=== PATIENT | male | born 1965 | race Caucasian/White ===

== ENCOUNTER 2018-01-22 18:52 | Emergency (ER) | payer OTHER ==
[~2018-01-22] VITALS: Ht 188 cm; Wt 102.2 kg
[~2018-01-22 18:52] MED LIST: BACTRIM DS1 TAB PO; DARVOCET N-100100 - OR; DILAUDID 2MG2 MG/TA1 PO; FLEXERIL OR; FLEXERIL PO; MORPHINE SUL15 MG PO; MOTRIN800 MG OR; MUPIROCIN2 % EX; NAPROSYN500 MG OR; NAPROSYN500 MG PO; NO HOME MEDS; TRIMOX500 MG PO
[2018-01-22 19:57] LABS: HEMATOCRIT 45.4 % (39.0-50.0); HEMOGLOBIN 16.3 g/dl (14.0-18.0); IMMATURE GRANULOCYTES 0.3 % (0.0-1.0); MEAN CELL VOLUME 84.9 fL CALC (80.0-100.0); MEAN CORPUSCULAR HGB 30.5 pG CALC (26.0-32.0); MEAN CORPUSCULAR HGB CONC 35.9 g/L CALC (32.0-36.0); NEUT# 5.88 thou/uL (1.82-7.42); RED BLOOD COUNT 5.35 mill/uL (4.70-6.10); RED CELL DISTRI WIDTH 12.1 % (11.5-15.5)
[2018-01-22 20:17] LABS: INFLUENZA A NONE DETECTED (NONE DETECT); INFLUENZA B NONE DETECTED (NONE DETECT)
[2018-01-22 20:23] LABS: ALBUMIN 3.5 g/dL (3.2-5.0); ALKALINE PHOSPHATASE 90 u/l (38-126); ANION GAP 18 (6-22 (CALC)); BILIRUBIN, TOTAL 0.3 mg/dL (0.0-1.4); BUN 9 mg/dL (9-20); BUN/CREATININE RATIO 9 (12-20 (CALC)); CARBON DIOXIDE 24 mmol/l (22-30); CHLORIDE 96 mmol/l (95-108); CREATININE 0.9 mg/dL (0.7-1.3); GFR > 60 ML/MIN (>=60 (CALC)); GFR FOR AFR.AMER. > 60 ML/MIN (>=60 (CALC)); LIPASE 68 u/l (23-300); POTASSIUM 4.1 mmol/l (3.5-5.1); SGOT/AST 24 u/l (17-59); SGPT/ALT 37 u/l (21-72); SODIUM 133 mmol/l (137-146); TOTAL PROTEIN 6.2 g/dL (6.3-8.2)
[2018-01-22 21:38] LABS: URINE BILIRUBIN - DIPSTICK NEGATIVE (NEGATIVE); URINE BLOOD DIPSTICK NEGATIVE (NEGATIVE); URINE COLOR YELLOW; URINE GLUCOSE - DIPSTICK NEGATIVE (NEGATIVE); URINE KETONE NEGATIVE (NEGATIVE); URINE LEUK ESTERASE NEGATIVE (NEGATIVE); URINE NITRITE - DIPSTICK NEGATIVE (Negative); URINE PROTEIN - DIPSTICK NEGATIVE (NEG-TRACE); URINE SPECIFIC GRAVITY <=1.005; URINE UROBILINOGEN - DIPSTICK 0.2 E.U./dL (0.2)
[2018-01-22 21:46] LABS: URINE CLARITY CLEAR
[2018-01-22] MEDS ORDERED: AUGMENTIN875TAB PO (22:08)
[2018-01-22 22:39] VITALS: BP 128/82
== END 2018-01-22 22:39 | disposition home or self-care (01) | DRG 153 ==
LOC: ED 18:52
PROVIDERS: Emergency Medicine
DX: J02.0 Streptococcal pharyngitis (principal); F17.210 Nicotine dependence, cigarettes, uncomplicated; R05 Cough; R50.9 Fever, unspecified; R09.89 Other specified symptoms and signs involving the circulatory and respiratory systems; R11.10 Vomiting, unspecified; R19.7 Diarrhea, unspecified; M79.1 Myalgia

== ENCOUNTER 2018-01-28 12:40 | Emergency (ER) | payer OTHER ==
[~2018-01-28] VITALS: Ht 188 cm; Wt 102.0 kg
[~2018-01-28 12:40] MED LIST changes: +AUGMENTIN875TAB PO
[2018-01-28 14:00] LABS: HEMATOCRIT 44.8 % (39.0-50.0); HEMOGLOBIN 16.2 g/dl (14.0-18.0); IMMATURE GRANULOCYTES 1.3 % (0.0-1.0); MEAN CELL VOLUME 83.3 fL CALC (80.0-100.0); MEAN CORPUSCULAR HGB 30.1 pG CALC (26.0-32.0); MEAN CORPUSCULAR HGB CONC 36.2 g/L CALC (32.0-36.0); RED BLOOD COUNT 5.38 mill/uL (4.70-6.10); RED CELL DISTRI WIDTH 11.9 % (11.5-15.5)
[2018-01-28] MEDS ORDERED: PEPCID20 MG PO (14:10)
[2018-01-28] MEDS ORDERED: VALIUM5 MG PO (14:10)
[2018-01-28 14:18] LABS: ALBUMIN 3.3 g/dL (3.2-5.0); ALKALINE PHOSPHATASE 81 u/l (38-126); ANION GAP 18 (6-22 (CALC)); BILIRUBIN, TOTAL 0.6 mg/dL (0.0-1.4); BUN 13 mg/dL (9-20); BUN/CREATININE RATIO 12 (12-20 (CALC)); CARBON DIOXIDE 22 mmol/l (22-30); CHLORIDE 103 mmol/l (95-108); GFR > 60 ML/MIN (>=60 (CALC)); GFR FOR AFR.AMER. > 60 ML/MIN (>=60 (CALC)); LIPASE 115 u/l (23-300); POTASSIUM 4.2 mmol/l (3.5-5.1); SGOT/AST 29 u/l (17-59); SGPT/ALT 58 u/l (21-72); SODIUM 139 mmol/l (137-146); TOTAL PROTEIN 6.4 g/dL (6.3-8.2)
[2018-01-28 15:33] LABS: URINE BLOOD DIPSTICK NEGATIVE (NEGATIVE); URINE COLOR YELLOW; URINE GLUCOSE - DIPSTICK NEGATIVE (NEGATIVE); URINE KETONE NEGATIVE (NEGATIVE); URINE LEUK ESTERASE NEGATIVE (NEGATIVE); URINE NITRITE - DIPSTICK NEGATIVE (Negative); URINE PH 6.5 (4.5-8.0); URINE PROTEIN - DIPSTICK TRACE mg/dL (NEG-TRACE)
[2018-01-28 16:00] LABS: URINE BILIRUBIN - DIPSTICK SMALL (NEGATIVE); URINE CLARITY CLEAR
[2018-01-28] MEDS ORDERED: ONDANSETRON4 MG PO (16:03)
[2018-01-28 16:11] VITALS: BP 130/96
== END 2018-01-28 16:19 | disposition home or self-care (01) | DRG 392 ==
LOC: ED 12:40
PROVIDERS: Family Medicine
DX: A08.4 Viral intestinal infection, unspecified (principal); F17.210 Nicotine dependence, cigarettes, uncomplicated; G89.29 Other chronic pain; M54.9 Dorsalgia, unspecified
CPT/HCPCS: Q9967

== ENCOUNTER 2019-09-05 14:57 | Inpatient (IN) | payer OTHER ==
[~2019-09-05] VITALS: Ht 188 cm; Wt 84.6 kg
[~2019-09-05 14:57] MED LIST changes: +ONDANSETRON4 MG PO; +PEPCID20 MG PO; +VALIUM5 MG PO
[2019-09-05 15:24] LABS: HEMATOCRIT 40.6 % (39.0-50.0); HEMOGLOBIN 14.3 g/dl (14.0-18.0); IMMATURE GRANULOCYTES 0.5 % (0.0-5.0); MEAN CELL VOLUME 85.3 fL CALC (80.0-100.0); MEAN CORPUSCULAR HGB CONC 35.2 g/L CALC (32.0-36.0); NEUT# 8.34 thou/uL (1.82-7.42); RED BLOOD COUNT 4.76 mill/uL (4.70-6.10); RED CELL DISTRI WIDTH 12.6 % (11.5-15.5)
[2019-09-05 15:42] LABS: ANION GAP 12 (6-22 (CALC)); BUN 10 mg/dL (9-20); BUN/CREATININE RATIO 12 (12-20 (CALC)); CARBON DIOXIDE 24 mmol/l (22-30); CHLORIDE 101 mmol/l (95-108); CREATININE 0.8 mg/dL (0.7-1.3); GFR > 60 ML/MIN (>=60 (CALC)); GFR FOR AFR.AMER. > 60 ML/MIN (>=60 (CALC)); POTASSIUM 3.9 mmol/l (3.5-5.1); SODIUM 133 mmol/l (137-146)
[2019-09-05 17:44] VITALS: BP 104/76
[2019-09-05 19:25] VITALS: BP 102/62
[2019-09-06 00:08] VITALS: BP 104/71
[2019-09-06 04:35] VITALS: BP 113/78
[2019-09-06 08:06] VITALS: BP 127/86
[2019-09-06 13:44] LABS: HEMATOCRIT 40.4 % (39.0-50.0); IMMATURE GRANULOCYTES 0.6 % (0.0-5.0); MEAN CELL VOLUME 88.6 fL CALC (80.0-100.0); MEAN CORPUSCULAR HGB 30.7 pG CALC (26.0-32.0); MEAN CORPUSCULAR HGB CONC 34.7 g/L CALC (32.0-36.0); RED BLOOD COUNT 4.56 mill/uL (4.70-6.10); RED CELL DISTRI WIDTH 12.8 % (11.5-15.5)
[2019-09-06 15:10] VITALS: BP 118/76
[2019-09-06 19:00] VITALS: BP 115/75
[2019-09-07 04:20] VITALS: BP 109/62
[2019-09-07 05:31] LABS: HEMATOCRIT 42.4 % (39.0-50.0); HEMOGLOBIN 14.5 g/dl (14.0-18.0); IMMATURE GRANULOCYTES 0.7 % (0.0-5.0); MEAN CELL VOLUME 88.5 fL CALC (80.0-100.0); MEAN CORPUSCULAR HGB 30.3 pG CALC (26.0-32.0); MEAN CORPUSCULAR HGB CONC 34.2 g/L CALC (32.0-36.0); NEUT# 11.78 thou/uL (1.82-7.42); RED BLOOD COUNT 4.79 mill/uL (4.70-6.10); RED CELL DISTRI WIDTH 12.9 % (11.5-15.5)
[2019-09-07 05:34] LABS: BUN 9 mg/dL (9-20); BUN/CREATININE RATIO 12 (12-20 (CALC)); CARBON DIOXIDE 22 mmol/l (22-30); CHLORIDE 105 mmol/l (95-108); CREATININE 0.8 mg/dL (0.7-1.3); GFR > 60 ML/MIN (>=60 (CALC)); GFR FOR AFR.AMER. > 60 ML/MIN (>=60 (CALC)); MAGNESIUM 1.7 mg/dL (1.6-2.3); SODIUM 136 mmol/l (137-146)
[2019-09-07 05:38] LABS: ANION GAP 14 (6-22 (CALC)); POTASSIUM 4.7 mmol/l (3.5-5.1)
[2019-09-07 08:05] VITALS: BP 128/72
[2019-09-07 15:04] VITALS: BP 116/66
[2019-09-07 19:05] VITALS: BP 133/83
[2019-09-08 03:39] VITALS: BP 118/68
[2019-09-08 07:44] VITALS: BP 113/69
[2019-09-08 10:40] VITALS: BP 138/83
[2019-09-08 15:09] VITALS: BP 113/68
[2019-09-08] MEDS ORDERED: ADVAIR DISK1 INH (18:09)
[2019-09-08] MEDS ORDERED: VENTOLIN HFA IN (18:09)
[2019-09-08] MEDS ORDERED: ZPAK PO (18:11)
== END 2019-09-08 18:40 | disposition home health service (06) | DRG 194 ==
LOC: ED 14:57 → ED-I 15:46 → ED 16:00 → MS2 16:01
PROVIDERS: Family Medicine; Nurse Practitioner Family; ADMIT Internal Medicine; ATTEND Internal Medicine
PROC: 3E02340 Introduction of Influenza Vaccine into Muscle, Percutaneous Approach (ICD-10-PCS; principal; 2019-09-07)
PROC: 3E0234Z Introduction of Serum, Toxoid and Vaccine into Muscle, Percutaneous Approach (ICD-10-PCS; 2019-09-07)
DX: J18.9 Pneumonia, unspecified organism (principal); E87.1 Hypo-osmolality and hyponatremia; M54.5 Low back pain; G89.29 Other chronic pain; F17.210 Nicotine dependence, cigarettes, uncomplicated; Z71.6 Tobacco abuse counseling; Z88.6 Allergy status to analgesic agent; Z88.5 Allergy status to narcotic agent
CPT/HCPCS: J1650; Q9967

== ENCOUNTER 2019-09-16 15:27 | Inpatient (IN) | payer OTHER ==
[~2019-09-16] VITALS: Ht 185.4 cm; Wt 89.8 kg
[~2019-09-16 15:27] MED LIST changes: +ADVAIR DISK1 INH; +VENTOLIN HFA IN; +ZPAK PO
[2019-09-16 16:30] LABS: HEMATOCRIT 40.8 % (39.0-50.0); HEMOGLOBIN 13.9 g/dl (14.0-18.0); IMMATURE GRANULOCYTES 0.3 % (0.0-5.0); MEAN CELL VOLUME 88.1 fL CALC (80.0-100.0); MEAN CORPUSCULAR HGB CONC 34.1 g/L CALC (32.0-36.0); NEUT# 1.96 thou/uL (1.82-7.42); RED BLOOD COUNT 4.63 mill/uL (4.70-6.10); RED CELL DISTRI WIDTH 12.7 % (11.5-15.5)
[2019-09-16 16:46] LABS: ALBUMIN 3.1 g/dL (3.2-5.0); ALKALINE PHOSPHATASE 199 u/l (38-126); AMYLASE 82 u/l (30-110); ANION GAP 13 (6-22 (CALC)); BILIRUBIN, TOTAL 0.4 mg/dL (0.0-1.4); BUN 22 mg/dL (9-20); BUN/CREATININE RATIO 23 (12-20 (CALC)); CARBON DIOXIDE 26 mmol/l (22-30); CHLORIDE 99 mmol/l (95-108); CREATININE 0.9 mg/dL (0.7-1.3); GFR > 60 ML/MIN (>=60 (CALC)); GFR FOR AFR.AMER. > 60 ML/MIN (>=60 (CALC)); LIPASE 294 u/l (23-300); POTASSIUM 4.6 mmol/l (3.5-5.1); SGOT/AST 407 u/l (17-59); SODIUM 133 mmol/l (137-146); TOTAL PROTEIN 6.2 g/dL (6.3-8.2)
[2019-09-16 17:02] LABS: URINE BILIRUBIN - DIPSTICK NEGATIVE (NEGATIVE); URINE BLOOD DIPSTICK NEGATIVE (NEGATIVE); URINE COLOR YELLOW; URINE GLUCOSE - DIPSTICK 250 mg/dL (NEGATIVE); URINE KETONE NEGATIVE (NEGATIVE); URINE LEUK ESTERASE NEGATIVE (NEGATIVE); URINE NITRITE - DIPSTICK NEGATIVE (Negative); URINE PH 5.5 (4.5-8.0); URINE PROTEIN - DIPSTICK NEGATIVE (NEG-TRACE); URINE SPECIFIC GRAVITY <=1.005
[2019-09-16 17:03] LABS: BARBITURATES NEGATIVE (NEGATIVE); COCAINE NEGATIVE (NEGATIVE); METHADONE NEGATIVE (NEGATIVE); OXCYCODONE POSITIVE (NEGATIVE); TETRAHYDROCANNABIONOL NEGATIVE (NEGATIVE); TRICYLIC ANTIDEPRESSANTS NEGATIVE (NEGATIVE)
[2019-09-16 17:39] LABS: ETHYL ALCOHOL 0 mg/dl (0-30)
[2019-09-16 20:30] VITALS: BP 144/92
[2019-09-17] VITALS (7 sets, daily range): BP systolic 98–134; BP diastolic 63–83
[2019-09-17 05:15] LABS: HEMATOCRIT 40.7 % (39.0-50.0); HEMOGLOBIN 13.5 g/dl (14.0-18.0); IMMATURE GRANULOCYTES 0.4 % (0.0-5.0); MEAN CELL VOLUME 90.4 fL CALC (80.0-100.0); MEAN CORPUSCULAR HGB CONC 33.2 g/L CALC (32.0-36.0); NEUT# 2.38 thou/uL (1.82-7.42); RED BLOOD COUNT 4.5 mill/uL (4.70-6.10); RED CELL DISTRI WIDTH 12.9 % (11.5-15.5)
[2019-09-17 05:49] LABS: ALBUMIN 2.9 g/dL (3.2-5.0); ALKALINE PHOSPHATASE 179 u/l (38-126); ANION GAP 12 (6-22 (CALC)); BILIRUBIN, TOTAL 0.4 mg/dL (0.0-1.4); BUN 15 mg/dL (9-20); BUN/CREATININE RATIO 18 (12-20 (CALC)); CARBON DIOXIDE 23 mmol/l (22-30); CHLORIDE 103 mmol/l (95-108); CREATININE 0.8 mg/dL (0.7-1.3); GFR > 60 ML/MIN (>=60 (CALC)); GFR FOR AFR.AMER. > 60 ML/MIN (>=60 (CALC)); POTASSIUM 4.4 mmol/l (3.5-5.1); SGOT/AST 424 u/l (17-59); SODIUM 133 mmol/l (137-146)
[2019-09-17 11:20] LABS: PROTHROMBIN TIME 10.7 SECONDS (9.0-12.5)
[2019-09-17 16:44] LABS: ALBUMIN 3.1 g/dL (3.2-5.0); BILIRUBIN, TOTAL 0.4 mg/dL (0.0-1.4); TOTAL PROTEIN 6.1 g/dL (6.3-8.2)
[2019-09-18 04:44] VITALS: BP 102/73
[2019-09-18 05:28] LABS: HEMATOCRIT 39.6 % (39.0-50.0); HEMOGLOBIN 13.4 g/dl (14.0-18.0); IMMATURE GRANULOCYTES 0.5 % (0.0-5.0); MEAN CELL VOLUME 89.4 fL CALC (80.0-100.0); MEAN CORPUSCULAR HGB 30.2 pG CALC (26.0-32.0); MEAN CORPUSCULAR HGB CONC 33.8 g/L CALC (32.0-36.0); NEUT# 2.43 thou/uL (1.82-7.42); RED BLOOD COUNT 4.43 mill/uL (4.70-6.10); RED CELL DISTRI WIDTH 12.8 % (11.5-15.5)
[2019-09-18 05:49] LABS: ALKALINE PHOSPHATASE 185 u/l (38-126); ANION GAP 10 (6-22 (CALC)); BUN 11 mg/dL (9-20); BUN/CREATININE RATIO 13 (12-20 (CALC)); CARBON DIOXIDE 22 mmol/l (22-30); CHLORIDE 107 mmol/l (95-108); CREATININE 0.9 mg/dL (0.7-1.3); GFR > 60 ML/MIN (>=60 (CALC)); GFR FOR AFR.AMER. > 60 ML/MIN (>=60 (CALC)); MAGNESIUM 1.8 mg/dL (1.6-2.3); POTASSIUM 4.3 mmol/l (3.5-5.1); SGOT/AST 449 u/l (17-59); SODIUM 135 mmol/l (137-146)
[2019-09-18 07:41] VITALS: BP 91/62
[2019-09-18 10:47] VITALS: BP 103/68
[2019-09-18] MEDS ORDERED: PANTOPRAZOLE SO40 M1 PO (12:18)
[2019-09-18] MEDS ORDERED: OXYCODONE5 M1 PO (12:18)
== END 2019-09-18 14:11 | disposition home or self-care (01) | DRG 443 ==
LOC: ED 15:27 → ED-I 19:06 → ED 19:48 → MS2 19:49
PROVIDERS: Emergency Medicine; Internal Medicine Infectious Disease; Nurse Practitioner Family; ADMIT Internal Medicine; ATTEND Internal Medicine
DX: B16.9 Acute hepatitis B without delta-agent and without hepatic coma (principal); B17.10 Acute hepatitis C without hepatic coma; K76.0 Fatty (change of) liver, not elsewhere classified; J44.9 Chronic obstructive pulmonary disease, unspecified; F17.210 Nicotine dependence, cigarettes, uncomplicated; K44.9 Diaphragmatic hernia without obstruction or gangrene; R73.9 Hyperglycemia, unspecified; F11.10 Opioid abuse, uncomplicated; F15.10 Other stimulant abuse, uncomplicated; M51.26 Other intervertebral disc displacement, lumbar region; Z87.01 Personal history of pneumonia (recurrent); V89.2XXS Person injured in unspecified motor-vehicle accident, traffic, sequela
CPT/HCPCS: Q9967

== ENCOUNTER 2019-11-30 | Emergency (ER) | payer OTHER ==
[~2019-11-30] MED LIST changes: +OXYCODONE5 M1 PO; +PANTOPRAZOLE SO40 M1 PO
[2019-11-30 22:04] LABS: HEMATOCRIT 36.9 % (39.0-50.0); HEMOGLOBIN 12.9 g/dl (14.0-18.0); IMMATURE GRANULOCYTES 0.3 % (0.0-5.0); MEAN CELL VOLUME 89.1 fL CALC (80.0-100.0); MEAN CORPUSCULAR HGB 31.2 pG CALC (26.0-32.0); NEUT# 3.92 thou/uL (1.82-7.42); RED BLOOD COUNT 4.14 mill/uL (4.70-6.10); RED CELL DISTRI WIDTH 13.5 % (11.5-15.5)
[2019-11-30 22:21] LABS: ALBUMIN 3.3 g/dL (3.2-5.0); ANION GAP 11 (6-22 (CALC)); BUN 13 mg/dL (9-20); BUN/CREATININE RATIO 13 (12-20 (CALC)); CARBON DIOXIDE 23 mmol/l (22-30); CHLORIDE 102 mmol/l (95-108); ETHYL ALCOHOL 0 mg/dl (0-30); GFR > 60 ML/MIN (>=60 (CALC)); GFR FOR AFR.AMER. > 60 ML/MIN (>=60 (CALC)); MAGNESIUM 1.7 mg/dL (1.6-2.3); SODIUM 131 mmol/l (137-146); TOTAL PROTEIN 6.3 g/dL (6.3-8.2)
[2019-11-30 22:26] LABS: ALKALINE PHOSPHATASE 71 u/l (38-126); BILIRUBIN, TOTAL 0.7 mg/dL (0.0-1.4); SGOT/AST 33 u/l (17-59)
[2019-12-01 00:20] LABS: URINE BILIRUBIN - DIPSTICK NEGATIVE (NEGATIVE); URINE BLOOD DIPSTICK NEGATIVE (NEGATIVE); URINE COLOR YELLOW; URINE GLUCOSE - DIPSTICK NEGATIVE (NEGATIVE); URINE KETONE NEGATIVE (NEGATIVE); URINE LEUK ESTERASE NEGATIVE (NEGATIVE); URINE NITRITE - DIPSTICK NEGATIVE (Negative); URINE PROTEIN - DIPSTICK NEGATIVE (NEG-TRACE)
[2019-12-01 00:21] LABS: BARBITURATES NEGATIVE (NEGATIVE); COCAINE POSITIVE (NEGATIVE); METHADONE NEGATIVE (NEGATIVE); TETRAHYDROCANNABIONOL NEGATIVE (NEGATIVE); TRICYLIC ANTIDEPRESSANTS NEGATIVE (NEGATIVE)
[2019-12-01 00:22] LABS: OXCYCODONE POSITIVE (NEGATIVE)
== END 2019-12-01 04:25 | disposition home or self-care (01) ==
PROVIDERS: Family Medicine
DX: F11.10 Opioid abuse, uncomplicated (principal); F17.200 Nicotine dependence, unspecified, uncomplicated

== ENCOUNTER 2020-01-21 | Inpatient (IN) | payer OTHER ==
[2020-01-21 14:11] LABS: HEMATOCRIT 39.6 % (39.0-50.0); HEMOGLOBIN 14.4 g/dl (14.0-18.0); IMMATURE GRANULOCYTES 0.4 % (0.0-5.0); MEAN CELL VOLUME 85.5 fL CALC (80.0-100.0); MEAN CORPUSCULAR HGB 31.1 pG CALC (26.0-32.0); MEAN CORPUSCULAR HGB CONC 36.4 g/dL CAL (32.0-36.0); NEUT# 11.04 thou/uL (1.82-7.42); RED BLOOD COUNT 4.63 mill/uL (4.70-6.10)
[2020-01-21 14:30] LABS: ALBUMIN 3.3 g/dL (3.2-5.0); ALKALINE PHOSPHATASE 78 u/l (38-126); ANION GAP 13 (6-22 (CALC)); BUN 19 mg/dL (9-20); BUN/CREATININE RATIO 18 (12-20 (CALC)); CARBON DIOXIDE 21 mmol/l (22-30); CHLORIDE 97 mmol/l (95-108); CREATININE 1.1 mg/dL (0.7-1.3); GFR > 60 ML/MIN (>=60 (CALC)); GFR FOR AFR.AMER. > 60 ML/MIN (>=60 (CALC)); LIPASE 107 u/l (23-300); POTASSIUM 4.1 mmol/l (3.5-5.1); SGOT/AST 27 u/l (17-59); SODIUM 127 mmol/l (137-146); TOTAL PROTEIN 6.3 g/dL (6.3-8.2)
[2020-01-21 14:42] LABS: C-REACTIVE PROTEIN 20.1 mg/dL (0-0.9)
[2020-01-21 17:08] VITALS: BP 98/67
[2020-01-21 19:12] VITALS: BP 82/52
[2020-01-21 21:50] VITALS: BP 92/55
[2020-01-22 04:19] VITALS: BP 102/70; BP 83/50
[2020-01-22 07:47] LABS: HEMATOCRIT 34.4 % (39.0-50.0); MEAN CELL VOLUME 86.6 fL CALC (80.0-100.0); MEAN CORPUSCULAR HGB CONC 35.8 g/dL CAL (32.0-36.0); RED BLOOD COUNT 3.97 mill/uL (4.70-6.10); RED CELL DISTRI WIDTH 12.1 % (11.5-15.5)
[2020-01-22 08:04] LABS: HEMOGLOBIN 12.3 g/dl (14.0-18.0)
[2020-01-22 08:08] VITALS: BP 96/88
[2020-01-22 08:17] LABS: ANION GAP 9 (6-22 (CALC)); BUN 12 mg/dL (9-20); BUN/CREATININE RATIO 14 (12-20 (CALC)); CARBON DIOXIDE 21 mmol/l (22-30); CHLORIDE 104 mmol/l (95-108); CREATININE 0.8 mg/dL (0.7-1.3); GFR > 60 ML/MIN (>=60 (CALC)); GFR FOR AFR.AMER. > 60 ML/MIN (>=60 (CALC)); MAGNESIUM 1.7 mg/dL (1.6-2.3); POTASSIUM 3.4 mmol/l (3.5-5.1); SODIUM 130 mmol/l (137-146)
[2020-01-22 15:00] VITALS: BP 90/51
[2020-01-22 17:45] VITALS: BP 106/86
[2020-01-22 18:25] VITALS: BP 108/70
[2020-01-23 04:50] VITALS: BP 92/66
[2020-01-23 08:45] VITALS: BP 99/60
== END 2020-01-23 14:56 | disposition left against medical advice (07) | DRG 872 ==
PROVIDERS: ADMIT Internal Medicine
DX: A41.9 Sepsis, unspecified organism (principal); L03.115 Cellulitis of right lower limb; E87.1 Hypo-osmolality and hyponatremia; L97.929 Non-pressure chronic ulcer of unspecified part of left lower leg with unspecified severity; L97.919 Non-pressure chronic ulcer of unspecified part of right lower leg with unspecified severity; L03.116 Cellulitis of left lower limb; F17.200 Nicotine dependence, unspecified, uncomplicated; G89.4 Chronic pain syndrome; B19.20 Unspecified viral hepatitis C without hepatic coma; B95.62 Methicillin resistant Staphylococcus aureus infection as the cause of diseases classified elsewhere; Z87.01 Personal history of pneumonia (recurrent)
CPT/HCPCS: J1650; J3370

== ENCOUNTER 2020-02-23 | Emergency (ER) | payer OTHER ==
[2020-02-23 22:47] LABS: IMMATURE GRANULOCYTES 0.5 % (0.0-5.0); MEAN CORPUSCULAR HGB 30.4 pG CALC (26.0-32.0); MEAN CORPUSCULAR HGB CONC 35.4 g/dL CAL (32.0-36.0); NEUT# 5.92 thou/uL (1.82-7.42); RED BLOOD COUNT 4.8 mill/uL (4.70-6.10); RED CELL DISTRI WIDTH 12.3 % (11.5-15.5)
[2020-02-23 22:55] LABS: HEMATOCRIT 41.3 % (39.0-50.0); HEMOGLOBIN 14.6 g/dl (14.0-18.0)
[2020-02-23 23:04] LABS: ALBUMIN 3.7 g/dL (3.2-5.0); ALKALINE PHOSPHATASE 90 u/l (38-126); AMYLASE 77 u/l (30-110); BILIRUBIN, TOTAL 0.6 mg/dL (0.0-1.4); BUN 13 mg/dL (9-20); BUN/CREATININE RATIO 13 (12-20 (CALC)); CHLORIDE 103 mmol/l (95-108); GFR > 60 ML/MIN (>=60 (CALC)); GFR FOR AFR.AMER. > 60 ML/MIN (>=60 (CALC)); LIPASE 97 u/l (23-300); SODIUM 135 mmol/l (137-146); TOTAL PROTEIN 6.8 g/dL (6.3-8.2)
[2020-02-23 23:07] LABS: ANION GAP 9 (6-22 (CALC)); CARBON DIOXIDE 27 mmol/l (22-30); POTASSIUM 4.4 mmol/l (3.5-5.1); SGOT/AST 90 u/l (17-59)
[2020-02-23 23:34] LABS: TSH, 3RD GENERATION 1.88 uIU/mL (0.47 - 4.68)
[2020-02-24 00:16] LABS: URINE BILIRUBIN - DIPSTICK NEGATIVE (NEGATIVE); URINE BLOOD DIPSTICK NEGATIVE (NEGATIVE); URINE COLOR YELLOW; URINE GLUCOSE - DIPSTICK NEGATIVE (NEGATIVE); URINE KETONE TRACE mg/dL (NEGATIVE); URINE LEUK ESTERASE NEGATIVE (NEGATIVE); URINE NITRITE - DIPSTICK NEGATIVE (Negative); URINE PH 7.5 (4.5-8.0); URINE PROTEIN - DIPSTICK NEGATIVE (NEG-TRACE); URINE UROBILINOGEN - DIPSTICK 0.2 E.U./dL (0.2)
[2020-02-24 00:17] LABS: COCAINE POSITIVE (NEGATIVE); METHADONE NEGATIVE (NEGATIVE); TETRAHYDROCANNABIONOL NEGATIVE (NEGATIVE)
[2020-02-24 00:18] LABS: BARBITURATES NEGATIVE (NEGATIVE); OXCYCODONE NEGATIVE (NEGATIVE); TRICYLIC ANTIDEPRESSANTS NEGATIVE (NEGATIVE)
[2020-02-24] MEDS ORDERED: PHENERGAN25 MG RE (00:29)
== END 2020-02-24 00:40 | disposition home or self-care (01) ==
PROVIDERS: Family Medicine
DX: R11.10 Vomiting, unspecified (principal); F19.10 Other psychoactive substance abuse, uncomplicated; F17.210 Nicotine dependence, cigarettes, uncomplicated

== ENCOUNTER 2020-04-13 15:14 | Emergency (ER) | payer OTHER ==
[~2020-04-13] VITALS: Ht 188 cm; Wt 90.0 kg
[~2020-04-13 15:14] MED LIST changes: +PHENERGAN25 MG RE
[2020-04-13] MEDS ORDERED: ERYTHROMYCIN O3.5 GM OS (16:04)
[2020-04-13 16:13] VITALS: BP 115/76
== END 2020-04-13 16:13 | disposition home or self-care (01) ==
LOC: ED 15:14
DX: S05.02XA Injury of conjunctiva and corneal abrasion without foreign body, left eye, initial encounter (principal); F17.210 Nicotine dependence, cigarettes, uncomplicated; W22.8XXA Striking against or struck by other objects, initial encounter; Y93.H9 Activity, other involving exterior property and land maintenance, building and construction; Y92.007 Garden or yard of unspecified non-institutional (private) residence as the place of occurrence of the external cause

== ENCOUNTER 2020-04-21 03:13 | Emergency (ER) | payer OTHER ==
[~2020-04-21] VITALS: Ht 188 cm; Wt 90.9 kg
[~2020-04-21 03:13] MED LIST changes: +ERYTHROMYCIN O3.5 GM OS
[2020-04-21 04:17] LABS: URINE BILIRUBIN - DIPSTICK NEGATIVE (NEGATIVE); URINE BLOOD DIPSTICK NEGATIVE (NEGATIVE); URINE COLOR YELLOW; URINE GLUCOSE - DIPSTICK NEGATIVE (NEGATIVE); URINE KETONE NEGATIVE (NEGATIVE); URINE LEUK ESTERASE NEGATIVE (NEGATIVE); URINE NITRITE - DIPSTICK NEGATIVE (Negative); URINE PH 5.5 (4.5-8.0); URINE PROTEIN - DIPSTICK NEGATIVE (NEG-TRACE); URINE UROBILINOGEN - DIPSTICK 0.2 E.U./dL (0.2)
[2020-04-21 04:17] LABS: HEMATOCRIT 40.1 % (39.0-50.0); IMMATURE GRANULOCYTES 0.2 % (0.0-5.0); MEAN CELL VOLUME 85.7 fL CALC (80.0-100.0); MEAN CORPUSCULAR HGB 29.9 pG CALC (26.0-32.0); MEAN CORPUSCULAR HGB CONC 34.9 g/dL CAL (32.0-36.0); NEUT# 1.68 thou/uL (1.82-7.42); RED BLOOD COUNT 4.68 mill/uL (4.70-6.10)
[2020-04-21 04:21] LABS: D-DIMER 0.43 mg/L (0.19-0.60); PROTHROMBIN TIME 10.2 SECONDS (9.0-12.5)
[2020-04-21 04:29] LABS: ALBUMIN 3.7 g/dL (3.2-5.0); ALKALINE PHOSPHATASE 100 u/l (38-126); ANION GAP 9 (6-22 (CALC)); BUN 28 mg/dL (9-20); BUN/CREATININE RATIO 27 (12-20 (CALC)); CARBON DIOXIDE 26 mmol/l (22-30); CHLORIDE 104 mmol/l (95-108); GFR > 60 ML/MIN (>=60 (CALC)); GFR FOR AFR.AMER. > 60 ML/MIN (>=60 (CALC)); POTASSIUM 4.1 mmol/l (3.5-5.1); SGOT/AST 86 u/l (17-59); SODIUM 135 mmol/l (137-146); TOTAL PROTEIN 6.8 g/dL (6.3-8.2)
[2020-04-21 04:32] LABS: BILIRUBIN, TOTAL 0.3 mg/dL (0.0-1.4)
[2020-04-21 04:40] VITALS: BP 97/70
[2020-04-21 04:41] LABS: MYOGLOBIN 57 ng/mL (0 - 121)
== END 2020-04-21 05:04 | disposition home or self-care (01) ==
LOC: ED 03:13
PROVIDERS: Family Medicine
DX: R06.02 Shortness of breath (principal); F19.10 Other psychoactive substance abuse, uncomplicated; F17.210 Nicotine dependence, cigarettes, uncomplicated

== ENCOUNTER 2020-08-04 05:10 | Observation (INO) | payer OTHER ==
[~2020-08-04] VITALS: Ht 188 cm; Wt 90.0 kg
[2020-08-04 03:30] VITALS: BP 91/48
--- NOTE | 2020-08-04 05:13 | NUR ---
AMBULATED TO ROOM 13 USING CANE.
--- NOTE | 2020-08-04 06:20 | NUR ---
A/O M WITH VAGUE C/O NOT FEELING WELL.DENIES N/V/OR D.W/P/D SKIN SR NO ST T CHANGES NO ECTOPY
[2020-08-04 06:21] LABS: HEMATOCRIT 41.1 % (39.0-50.0); HEMOGLOBIN 14.1 g/dl (14.0-18.0); IMMATURE GRANULOCYTES 0.2 % (0.0-5.0); MEAN CELL VOLUME 86.9 fL CALC (80.0-100.0); MEAN CORPUSCULAR HGB 29.8 pG CALC (26.0-32.0); MEAN CORPUSCULAR HGB CONC 34.3 g/dL CAL (32.0-36.0); NEUT# 2.72 thou/uL (1.82-7.42); RED BLOOD COUNT 4.73 mill/uL (4.70-6.10); RED CELL DISTRI WIDTH 12.3 % (11.5-15.5)
[2020-08-04 06:24] LABS: URINE BILIRUBIN - DIPSTICK NEGATIVE (NEGATIVE); URINE BLOOD DIPSTICK NEGATIVE (NEGATIVE); URINE COLOR YELLOW; URINE GLUCOSE - DIPSTICK NEGATIVE (NEGATIVE); URINE KETONE NEGATIVE (NEGATIVE); URINE LEUK ESTERASE NEGATIVE (NEGATIVE); URINE NITRITE - DIPSTICK NEGATIVE (Negative); URINE PH 5.5 (4.5-8.0); URINE PROTEIN - DIPSTICK NEGATIVE (NEG-TRACE); URINE SPECIFIC GRAVITY 1.025; URINE UROBILINOGEN - DIPSTICK 0.2 E.U./dL (0.2)
[2020-08-04 06:35] LABS: ALBUMIN 3.7 g/dL (3.2-5.0); ALKALINE PHOSPHATASE 91 u/l (38-126); ANION GAP 12 (6-22 (CALC)); BILIRUBIN, TOTAL 0.2 mg/dL (0.0-1.4); BUN 12 mg/dL (9-20); BUN/CREATININE RATIO 15 (12-20 (CALC)); CARBON DIOXIDE 23 mmol/l (22-30); CHLORIDE 105 mmol/l (95-108); CREATININE 0.8 mg/dL (0.7-1.3); GFR > 60 ML/MIN (>=60 (CALC)); GFR FOR AFR.AMER. > 60 ML/MIN (>=60 (CALC)); POTASSIUM 4.2 mmol/l (3.5-5.1); SGOT/AST 25 u/l (17-59); SODIUM 137 mmol/l (137-146); TOTAL PROTEIN 6.3 g/dL (6.3-8.2)
[2020-08-04 06:39] LABS: PROTHROMBIN TIME 9.7 SECONDS (9.0-12.5)
[2020-08-04 06:47] LABS: MYOGLOBIN 41 ng/mL (0 - 121)
--- NOTE | 2020-08-04 06:58 | NUR ---
PT REPORT TO ANAND [facility]
--- NOTE | 2020-08-04 07:28 | NUR ---
PT REQUESTING COMETHING FOR BACK PAINA ND SOMETHING TO HELP HIM SLEEP. NOTIFIED.
--- NOTE | 2020-08-04 07:40 | NUR ---
PT MEDICATED WITH ASA AND NITRO ORDERED, CALL [facility] WITHIN REACH.
--- NOTE | 2020-08-04 08:01 | NUR ---
PT AWARE OF PLANNED ADMISSION. CALL [facility] WITHIN REACH
--- NOTE | 2020-08-04 08:31 | NUR ---
REPORT CALLED TO [facility]IE [facility] ON MED SURG.
--- NOTE | 2020-08-04 08:31 | NUR ---
REPORT REC FROM [facility]IS [facility]
--- NOTE | 2020-08-04 08:40 | NUR ---
PT TRASNPORTED TO MED SURG VIA WC ON TELE TO ROOM 279, NURSE AND FAMILY [facility] AT BEDSIDE ON ARRIVAL. AWARE OF PT REQUEST FOR PAIN MEDICATION
--- NOTE | 2020-08-04 08:40 | NUR ---
PT ARRIVED TO ID VIA ACCOMPANIED BY LUIS [facility]. A&O X3. NO DISTRESS NOTED. PT STABALIZED IN ROOM. ORIENTED PT TO ROOM. CALL LIGHT IN REACH. CONTINUE TO MONITOR.
--- NOTE | 2020-08-04 10:15 | NUR ---
PT SITTING IN BED. A&O X3. NO DISTRESS NOTED. PT C/O CHRONIC BACK PAIN 08/09. 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 #20 LAC, PATENT WITH IV FLUIDS INTIATED AT 100 ML/HR. NO OTHER NEEDS AT THIS TIME. PT STATES HE OCCASSIONALLY GETS SOB WITH EXCERTION, USES A CANE TO ASSIST WITH AMBULATION. [facility] OFFERED BUT REFUSED. ASSESSMENT COMPLETED. DISCUSSED POC. CALL LIGHT IN REACH. CONTINUE TO MONITOR.
[2020-08-04 10:30] VITALS: BP 95/54
--- NOTE | 2020-08-04 12:43 | NUR ---
PT LAYING IN BED. NO DISTRESS NOTED. PAIN MEDICATION ADMINISTERED. TO BE REASSESSED. CALL LIGHT IN REACH. CONTINUE TO MONITOR.
--- NOTE | 2020-08-04 17:15 | NUR ---
PT SLEEPING IN BED. RESP EVEN AND UNLABORED. CONTINUE TO MONITOR.
--- NOTE | 2020-08-04 17:46 | NUR ---
PT ARRIVED FROM CT SCAN. IV FLUIDS RESTARTED.
[2020-08-04 19:00] VITALS: BP 94/53
--- NOTE | 2020-08-04 20:40 | NUR ---
PT MEDICATED ORDERS PROVIDE AND ASSESSMENT COMPLETED AT THIS TIME. NO S/O DISTRESS NOTED. PT PROVIDED WITH GINGERALE AND SNACK PER REQUEST. DENIES ANY OTHER NEEDS AT THIS TIME. CALL LIGHT W/IN REACH AND PT ENCOURAGED TO CALL NEEDS ARISE.
[2020-08-05] VITALS: BP 92/57
[2020-08-05 01:24] VITALS: BP 98/64
--- NOTE | 2020-08-05 01:28 | NUR ---
PT MEDICATED FOR PAIN AT THIS TIME ORDERS PROVIDE. V/S ASSESSED AT THIS TIME PRIOR TO ADMINISTRATION. SODA PROVIDED PER REQUEST, DENIES ANY OTHER NEEDS.
[2020-08-05 04:00] VITALS: BP 119/77
[2020-08-05 05:04] LABS: HEMATOCRIT 37.3 % (39.0-50.0); HEMOGLOBIN 12.9 g/dl (14.0-18.0); IMMATURE GRANULOCYTES 0.2 % (0.0-5.0); MEAN CELL VOLUME 86.5 fL CALC (80.0-100.0); MEAN CORPUSCULAR HGB 29.9 pG CALC (26.0-32.0); MEAN CORPUSCULAR HGB CONC 34.6 g/dL CAL (32.0-36.0); NEUT# 2.65 thou/uL (1.82-7.42); RED BLOOD COUNT 4.31 mill/uL (4.70-6.10); RED CELL DISTRI WIDTH 12.3 % (11.5-15.5)
[2020-08-05 05:24] LABS: ALKALINE PHOSPHATASE 71 u/l (38-126); ANION GAP 8 (6-22 (CALC)); BUN 13 mg/dL (9-20); BUN/CREATININE RATIO 15 (12-20 (CALC)); CALCULATED LDLCHOLESTEROL 83 mg/dL (62-129 (CALC)); CARBON DIOXIDE 25 mmol/l (22-30); CHLORIDE 109 mmol/l (95-108); CHOLESTEROL HDL RATIO 4.5 (<4.4 (CALC)); CREATININE 0.9 mg/dL (0.7-1.3); GFR > 60 ML/MIN (>=60 (CALC)); GFR FOR AFR.AMER. > 60 ML/MIN (>=60 (CALC)); HDL CHOLESTEROL 29 mg/dL (>=40); MAGNESIUM 1.9 mg/dL (1.6-2.3); POTASSIUM 4.6 mmol/l (3.5-5.1); SGOT/AST 23 u/l (17-59); SODIUM 136 mmol/l (137-146); TOTAL CHOLESTEROL 131 mg/dl (0-199); TOTAL PROTEIN 5.4 g/dL (6.3-8.2); TOTAL TRIGLYCERIDES 99 mg/dl (30-149); VLDL CHOLESTROL 20 mg/dl (8-62 (CALC))
[2020-08-05 05:26] LABS: BILIRUBIN, TOTAL 0.1 mg/dL (0.0-1.4)
[2020-08-05 07:01] VITALS: BP 147/92
--- NOTE | 2020-08-05 07:01 | NUR ---
PT SITTING ON THE SIDE OF THE BED. A&O X3. NO DISTRESS NOTED. PT REPORTS TO BE FEELING BETTER THIS MORNING BUT IS C/O OF GENERALIZED PAIN. PAIN MEDICATION TO BE GIVEN. NITRO PACE REMOVED. ASSESSMENT COMPLETED. DISCUSSED POC. CALL LIGHT IN REACH. CONTINUE TO MONITOR.
--- NOTE | 2020-08-05 08:55 | NUR ---
DR. MARION AND LEONEL VAZQUEZ AT BEDSIDE DISCUSSING POC
[2020-08-05] MEDS ORDERED: ULTRAM50 M1 PO (10:35)
--- NOTE | 2020-08-05 11:03 | NUR ---
Discharge instructions given. Patient verbalizes understanding of same. Pt encouraged to return if symptoms worsen. Prescription given to pt. Discharged in stable condition via wheelchair to home accompanied by staff. All belongings sent with pt.
== END 2020-08-05 11:03 | disposition home or self-care (01) ==
LOC: ED 05:10 → ED-I 05:50 → ED 05:50 → ED-I 07:37 → ED 07:55 → MS2 07:56
PROVIDERS: Emergency Medicine; Nurse Practitioner; ADMIT Internal Medicine; ATTEND Internal Medicine
DX: R07.9 Chest pain, unspecified (principal); R06.00 Dyspnea, unspecified; F15.10 Other stimulant abuse, uncomplicated; F11.10 Opioid abuse, uncomplicated; M51.26 Other intervertebral disc displacement, lumbar region; B19.20 Unspecified viral hepatitis C without hepatic coma; F17.210 Nicotine dependence, cigarettes, uncomplicated; Z23 Encounter for immunization; Z20.828 Contact with and (suspected) exposure to other viral communicable diseases
CPT/HCPCS: G0378; J1650; Q9967

== ENCOUNTER 2020-08-08 04:57 | Emergency (ER) | payer OTHER ==
[~2020-08-08] VITALS: Ht 188 cm; Wt 86.4 kg
[~2020-08-08 04:57] MED LIST changes: +ULTRAM50 M1 PO
[2020-08-08 05:48] LABS: IMMATURE GRANULOCYTES 0.3 % (0.0-5.0); MEAN CELL VOLUME 85.4 fL CALC (80.0-100.0); MEAN CORPUSCULAR HGB 30.4 pG CALC (26.0-32.0); MEAN CORPUSCULAR HGB CONC 35.6 g/dL CAL (32.0-36.0); NEUT# 6.92 thou/uL (1.82-7.42); RED BLOOD COUNT 5.26 mill/uL (4.70-6.10); RED CELL DISTRI WIDTH 12.4 % (11.5-15.5)
[2020-08-08 05:51] LABS: HEMATOCRIT 44.9 % (39.0-50.0)
[2020-08-08 06:03] LABS: ALKALINE PHOSPHATASE 78 u/l (38-126); AMYLASE 148 u/l (30-110); ANION GAP 17 (6-22 (CALC)); BUN 19 mg/dL (9-20); BUN/CREATININE RATIO 18 (12-20 (CALC)); CARBON DIOXIDE 20 mmol/l (22-30); CHLORIDE 102 mmol/l (95-108); CPK 41 u/l (52-200); CREATININE 1.1 mg/dL (0.7-1.3); GFR > 60 ML/MIN (>=60 (CALC)); GFR FOR AFR.AMER. > 60 ML/MIN (>=60 (CALC)); LIPASE 185 u/l (23-300); MAGNESIUM 1.7 mg/dL (1.6-2.3); POTASSIUM 3.9 mmol/l (3.5-5.1); SGOT/AST 30 u/l (17-59); SODIUM 135 mmol/l (137-146)
[2020-08-08 06:08] LABS: URINE BILIRUBIN - DIPSTICK NEGATIVE (NEGATIVE); URINE BLOOD DIPSTICK NEGATIVE (NEGATIVE); URINE COLOR YELLOW; URINE GLUCOSE - DIPSTICK NEGATIVE (NEGATIVE); URINE KETONE NEGATIVE (NEGATIVE); URINE LEUK ESTERASE NEGATIVE (NEGATIVE); URINE NITRITE - DIPSTICK NEGATIVE (Negative); URINE PROTEIN - DIPSTICK TRACE mg/dL (NEG-TRACE); URINE SPECIFIC GRAVITY >=1.030; URINE UROBILINOGEN - DIPSTICK 0.2 E.U./dL (0.2)
[2020-08-08 06:08] LABS: D-DIMER 0.43 mg/L (0.19-0.60)
[2020-08-08 06:14] LABS: MYOGLOBIN 36 ng/mL (0 - 121)
[2020-08-08 06:18] LABS: ACT PARTIAL THROMBO TIME 20.2 SECONDS (20.0-32.5)
[2020-08-08 06:20] LABS: BILIRUBIN, TOTAL 0.3 mg/dL (0.0-1.4); TOTAL PROTEIN 7.1 g/dL (6.3-8.2)
[2020-08-08] MEDS ORDERED: CATAPRES0.2 MG PO (06:50)
[2020-08-08 06:55] VITALS: BP 112/72
== END 2020-08-08 06:55 | disposition home or self-care (01) ==
LOC: ED 04:57
PROVIDERS: Family Medicine
DX: R07.9 Chest pain, unspecified (principal); F14.23 Cocaine dependence with withdrawal; G89.29 Other chronic pain; M54.5 Low back pain; M25.559 Pain in unspecified hip; B19.20 Unspecified viral hepatitis C without hepatic coma; F17.210 Nicotine dependence, cigarettes, uncomplicated

== ENCOUNTER 2020-12-22 08:23 | Emergency (ER) | payer OTHER ==
[~2020-12-22] VITALS: Ht 188 cm; Wt 90.0 kg
[~2020-12-22 08:23] MED LIST changes: +CATAPRES0.2 MG PO
[2020-12-22] MEDS ORDERED: AMOX/K CLAV875 M1 PO (09:45)
[2020-12-22] MEDS ORDERED: SUBOXONE1 MI1 SL (10:05)
[2020-12-22] MEDS ORDERED: CLONIDINE0.1 MG PO (10:06)
[2020-12-22] MEDS ORDERED: VISTARIL 50MG C50 M1 PO (10:06)
[2020-12-22] MEDS ORDERED: IBUPROFEN600 MG PO (10:07)
[2020-12-22] MEDS ORDERED: FLEXERIL5 MG PO (10:07)
[2020-12-22 10:11] VITALS: BP 121/82
[2020-12-23] MEDS ORDERED: PREDNISONE50 MG PO (16:55)
== END 2020-12-22 10:11 | disposition home or self-care (01) ==
LOC: ED 08:23
DX: J06.9 Acute upper respiratory infection, unspecified (principal); B19.20 Unspecified viral hepatitis C without hepatic coma; F17.200 Nicotine dependence, unspecified, uncomplicated; Z20.822 Contact with and (suspected) exposure to COVID-19

== ENCOUNTER 2020-12-23 14:29 | Emergency (ER) | payer OTHER ==
[~2020-12-23] VITALS: Ht 188 cm; Wt 90.0 kg
[~2020-12-23 14:29] MED LIST changes: +AMOX/K CLAV875 M1 PO; +CLONIDINE0.1 MG PO; +FLEXERIL5 MG PO; +IBUPROFEN600 MG PO; +SUBOXONE1 MI1 SL; +VISTARIL 50MG C50 M1 PO
[2020-12-23 15:47] LABS: HEMATOCRIT 46.6 % (39.0-50.0); HEMOGLOBIN 16.2 g/dl (14.0-18.0); IMMATURE GRANULOCYTES 0.1 % (0.0-5.0); MEAN CELL VOLUME 85.2 fL CALC (80.0-100.0); MEAN CORPUSCULAR HGB 29.6 pG CALC (26.0-32.0); MEAN CORPUSCULAR HGB CONC 34.8 g/dL CAL (32.0-36.0); NEUT# 4.68 thou/uL (1.82-7.42); RED BLOOD COUNT 5.47 mill/uL (4.70-6.10); RED CELL DISTRI WIDTH 12.2 % (11.5-15.5)
[2020-12-23 16:24] LABS: ALBUMIN 4.3 g/dL (3.2-5.0); ALKALINE PHOSPHATASE 82 u/l (38-126); ANION GAP 14 (6-22 (CALC)); BUN 9 mg/dL (9-20); BUN/CREATININE RATIO 10 (12-20 (CALC)); CARBON DIOXIDE 22 mmol/l (22-30); CHLORIDE 106 mmol/l (95-108); CREATININE 0.9 mg/dL (0.7-1.3); GFR > 60 ML/MIN (>=60 (CALC)); GFR FOR AFR.AMER. > 60 ML/MIN (>=60 (CALC)); POTASSIUM 4.3 mmol/l (3.5-5.1); SGOT/AST 27 u/l (17-59); SODIUM 138 mmol/l (137-146); TOTAL PROTEIN 7.5 g/dL (6.3-8.2)
[2020-12-23 16:36] LABS: BILIRUBIN, TOTAL 0.7 mg/dL (0.0-1.4)
[2020-12-23] MEDS ORDERED: PREDNISONE50 MG PO (16:55)
[2020-12-23 17:10] VITALS: BP 120/83
== END 2020-12-23 17:11 | disposition home or self-care (01) ==
LOC: ED 14:29
PROVIDERS: Family Medicine
DX: J40 Bronchitis, not specified as acute or chronic (principal); B19.20 Unspecified viral hepatitis C without hepatic coma; F17.210 Nicotine dependence, cigarettes, uncomplicated

== ENCOUNTER 2021-01-14 03:28 | Emergency (ER) | payer OTHER ==
[~2021-01-14] VITALS: Ht 188 cm; Wt 90.0 kg
[~2021-01-14 03:28] MED LIST changes: +PREDNISONE50 MG PO
[2021-01-14] MEDS ORDERED: PEPCID40 MG PO (03:52)
[2021-01-14] MEDS ORDERED: MUSCLE RELAXER (03:52)
[2021-01-14 04:12] LABS: HEMATOCRIT 44.5 % (39.0-50.0); HEMOGLOBIN 15.1 g/dl (14.0-18.0); IMMATURE GRANULOCYTES 0.2 % (0.0-5.0); MEAN CELL VOLUME 85.7 fL CALC (80.0-100.0); MEAN CORPUSCULAR HGB 29.1 pG CALC (26.0-32.0); MEAN CORPUSCULAR HGB CONC 33.9 g/dL CAL (32.0-36.0); NEUT# 3.54 thou/uL (1.82-7.42); RED BLOOD COUNT 5.19 mill/uL (4.70-6.10); RED CELL DISTRI WIDTH 12.5 % (11.5-15.5)
[2021-01-14 04:13] LABS: URINE BILIRUBIN - DIPSTICK NEGATIVE (NEGATIVE); URINE BLOOD DIPSTICK NEGATIVE (NEGATIVE); URINE COLOR YELLOW; URINE GLUCOSE - DIPSTICK NEGATIVE (NEGATIVE); URINE KETONE NEGATIVE (NEGATIVE); URINE LEUK ESTERASE NEGATIVE (NEGATIVE); URINE PROTEIN - DIPSTICK NEGATIVE (NEG-TRACE); URINE SPECIFIC GRAVITY 1.015; URINE UROBILINOGEN - DIPSTICK 0.2 E.U./dL (0.2)
[2021-01-14 04:16] LABS: URINE NITRITE - DIPSTICK NEGATIVE (Negative)
[2021-01-14 04:33] LABS: ALBUMIN 3.8 g/dL (3.2-5.0); ALKALINE PHOSPHATASE 83 u/l (38-126); AMYLASE 76 u/l (30-110); ANION GAP 11 (6-22 (CALC)); BILIRUBIN, TOTAL 0.6 mg/dL (0.0-1.4); BUN 13 mg/dL (9-20); BUN/CREATININE RATIO 15 (12-20 (CALC)); CARBON DIOXIDE 22 mmol/l (22-30); CHLORIDE 105 mmol/l (95-108); CREATININE 0.9 mg/dL (0.7-1.3); GFR > 60 ML/MIN (>=60 (CALC)); GFR FOR AFR.AMER. > 60 ML/MIN (>=60 (CALC)); LIPASE 59 u/l (23-300); POTASSIUM 4.3 mmol/l (3.5-5.1); SGOT/AST 34 u/l (17-59); SODIUM 134 mmol/l (137-146); TOTAL PROTEIN 6.8 g/dL (6.3-8.2)
[2021-01-14] MEDS ORDERED: ZOFRAN4 MG/TAB PO (05:36)
[2021-01-14] MEDS ORDERED: TORADOL PO (05:36)
[2021-01-14 05:45] VITALS: BP 133/75
== END 2021-01-14 05:45 | disposition home or self-care (01) ==
LOC: ED 03:28
PROVIDERS: Family Medicine
DX: M54.5 Low back pain (principal); M25.559 Pain in unspecified hip; G89.29 Other chronic pain; B19.20 Unspecified viral hepatitis C without hepatic coma; F17.200 Nicotine dependence, unspecified, uncomplicated

== ENCOUNTER 2021-02-19 | Emergency (ER) | payer OTHER ==
[~2021-02-19] MED LIST changes: +MUSCLE RELAXER; +PEPCID40 MG PO; +TORADOL PO; +ZOFRAN4 MG/TAB PO
[2021-02-19] MEDS ORDERED: TRAZODONE100 MG PO (00:57)
[2021-02-19] MEDS ORDERED: MOTRIN200 MG PO (00:58)
== END 2021-02-19 01:52 | disposition home or self-care (01) ==
DX: S01.112A Laceration without foreign body of left eyelid and periocular area, initial encounter (principal); B19.20 Unspecified viral hepatitis C without hepatic coma; F17.200 Nicotine dependence, unspecified, uncomplicated; M54.9 Dorsalgia, unspecified; M25.559 Pain in unspecified hip; G89.29 Other chronic pain; V18.0XXA Pedal cycle driver injured in noncollision transport accident in nontraffic accident, initial encounter; Y93.55 Activity, bike riding; Y92.410 Unspecified street and highway as the place of occurrence of the external cause

== ENCOUNTER 2021-07-26 17:16 | Emergency (ER) | payer OTHER ==
[~2021-07-26] VITALS: Ht 188 cm; Wt 100.0 kg
[~2021-07-26 17:16] MED LIST changes: +MOTRIN200 MG PO; +TRAZODONE100 MG PO
[2021-07-26] MEDS ORDERED: ORPHENADRINE100 MG PO (18:53)
[2021-07-26] MEDS ORDERED: VENTOLIN HFA IN (18:53)
[2021-07-26 19:05] VITALS: BP 151/96
== END 2021-07-26 19:05 | disposition home or self-care (01) ==
LOC: ED 17:16
DX: R51.9 Headache, unspecified (principal); B19.20 Unspecified viral hepatitis C without hepatic coma; G89.29 Other chronic pain; M25.559 Pain in unspecified hip; M54.9 Dorsalgia, unspecified; T48.6X6A Underdosing of antiasthmatics, initial encounter; F17.200 Nicotine dependence, unspecified, uncomplicated; Z91.128 Patient's intentional underdosing of medication regimen for other reason

== ENCOUNTER 2021-07-28 02:33 | Emergency (ER) | payer OTHER ==
[~2021-07-28] VITALS: Ht 188 cm; Wt 100.0 kg
[~2021-07-28 02:33] MED LIST changes: +ORPHENADRINE100 MG PO
[2021-07-28 03:12] LABS: HEMATOCRIT 44.5 % (39.0-50.0); IMMATURE GRANULOCYTES 0.1 % (0.0-5.0); MEAN CELL VOLUME 86.7 fL CALC (80.0-100.0); MEAN CORPUSCULAR HGB 31.2 pG CALC (26.0-32.0); NEUT# 5.1 thou/uL (1.82-7.42); RED BLOOD COUNT 5.13 mill/uL (4.70-6.10); RED CELL DISTRI WIDTH 12.9 % (11.5-15.5)
[2021-07-28 03:17] LABS: URINE BLOOD DIPSTICK NEGATIVE (NEGATIVE); URINE COLOR YELLOW; URINE GLUCOSE - DIPSTICK NEGATIVE (NEGATIVE); URINE KETONE TRACE mg/dL (NEGATIVE); URINE LEUK ESTERASE NEGATIVE (NEGATIVE); URINE PROTEIN - DIPSTICK NEGATIVE (NEG-TRACE); URINE SPECIFIC GRAVITY >=1.030
[2021-07-28 03:19] LABS: URINE BILIRUBIN - DIPSTICK NEGATIVE (NEGATIVE); URINE NITRITE - DIPSTICK NEGATIVE (Negative)
[2021-07-28 03:22] LABS: ALBUMIN 4.4 g/dL (3.2-5.0); ALKALINE PHOSPHATASE 85 u/l (38-126); ANION GAP 12 (6-22 (CALC)); BILIRUBIN, TOTAL 0.4 mg/dL (0.0-1.4); BUN 19 mg/dL (9-20); BUN/CREATININE RATIO 17 (12-20 (CALC)); CARBON DIOXIDE 26 mmol/l (22-30); CHLORIDE 107 mmol/l (95-108); CREATININE 1.1 mg/dL (0.7-1.3); GFR > 60 ML/MIN (>=60 (CALC)); GFR FOR AFR.AMER. > 60 ML/MIN (>=60 (CALC)); POTASSIUM 3.8 mmol/l (3.5-5.1); SGOT/AST 25 u/l (17-59); TOTAL PROTEIN 7.5 g/dL (6.3-8.2)
[2021-07-28 03:23] LABS: SODIUM 141 mmol/l (137-146)
[2021-07-28 03:57] VITALS: BP 140/90
== END 2021-07-28 04:01 | disposition home or self-care (01) ==
LOC: ED 02:33
PROVIDERS: Family Medicine
DX: G43.909 Migraine, unspecified, not intractable, without status migrainosus (principal); B19.20 Unspecified viral hepatitis C without hepatic coma; F17.210 Nicotine dependence, cigarettes, uncomplicated

== ENCOUNTER 2021-12-14 16:43 | Emergency (ER) | payer OTHER ==
[~2021-12-14] VITALS: Ht 188 cm; Wt 95.0 kg
[2021-12-14] MEDS ORDERED: GABAPENTIN100 MG PO (20:14)
[2021-12-14] MEDS ORDERED: FLEXERIL5 M1 PO (20:14)
[2021-12-14] MEDS ORDERED: MIGRAINE MED (20:15)
[2021-12-14 20:30] LABS: URINE BLOOD DIPSTICK NEGATIVE (NEGATIVE); URINE COLOR YELLOW; URINE GLUCOSE - DIPSTICK NEGATIVE (NEGATIVE); URINE KETONE NEGATIVE (NEGATIVE); URINE LEUK ESTERASE NEGATIVE (NEGATIVE); URINE PROTEIN - DIPSTICK NEGATIVE (NEG-TRACE); URINE SPECIFIC GRAVITY >=1.030; URINE UROBILINOGEN - DIPSTICK 0.2 E.U./dL (0.2)
[2021-12-14 20:31] LABS: URINE BILIRUBIN - DIPSTICK SMALL (NEGATIVE); URINE NITRITE - DIPSTICK NEGATIVE (Negative)
[2021-12-14 20:51] LABS: HEMATOCRIT 49.6 % (39.0-50.0); HEMOGLOBIN 16.7 g/dl (14.0-18.0); IMMATURE GRANULOCYTES 0.2 % (0.0-5.0); MEAN CELL VOLUME 89.4 fL CALC (80.0-100.0); MEAN CORPUSCULAR HGB 30.1 pG CALC (26.0-32.0); MEAN CORPUSCULAR HGB CONC 33.7 g/dL CAL (32.0-36.0); NEUT# 3.61 thou/uL (1.82-7.42); RED BLOOD COUNT 5.55 mill/uL (4.70-6.10); RED CELL DISTRI WIDTH 12.6 % (11.5-15.5)
[2021-12-14 21:00] LABS: ALBUMIN 4.6 g/dL (3.2-5.0); CREATININE 1.6 mg/dL (0.7-1.3)
[2021-12-14 21:02] LABS: BILIRUBIN, TOTAL 0.8 mg/dL (0.0-1.4); POTASSIUM 4.9 mmol/l (3.5-5.1)
[2021-12-14] MEDS ORDERED: PROMETHAZINE HY25 M1 PO (22:34)
[2021-12-14 23:05] VITALS: BP 142/92
== END 2021-12-14 23:15 | disposition home or self-care (01) ==
LOC: ED 16:43
PROVIDERS: Family Medicine
DX: K59.00 Constipation, unspecified (principal); B19.20 Unspecified viral hepatitis C without hepatic coma; F41.9 Anxiety disorder, unspecified; F17.200 Nicotine dependence, unspecified, uncomplicated

== ENCOUNTER 2022-04-25 18:41 | Emergency (ER) | payer OTHER ==
[~2022-04-25] VITALS: Ht 188 cm; Wt 100.0 kg
[~2022-04-25 18:41] MED LIST changes: +AMOXICILLIN500 MG PO; +FLEXERIL5 M1 PO; +GABAPENTIN100 MG PO; +MIGRAINE MED; +PROMETHAZINE HY25 M1 PO
[2022-04-25 19:13] VITALS: BP 136/97
[2022-04-25] MEDS ORDERED: VISTARIL 50MG C50 M1 PO (19:24)
[2022-04-25 19:31] VITALS: BP 133/94
[2022-04-25] MEDS ORDERED: ULTRAM50 M1 PO (19:34)
[2022-04-25] MEDS ORDERED: AMOXICILLIN500 MG PO (19:34)
[2022-04-25 19:46] VITALS: BP 133/96
[2022-04-25 19:48] VITALS: BP 133/96
== END 2022-04-25 19:50 | disposition home or self-care (01) ==
LOC: ED 18:41
DX: S02.5XXA Fracture of tooth (traumatic), initial encounter for closed fracture (principal); K04.7 Periapical abscess without sinus; B19.20 Unspecified viral hepatitis C without hepatic coma; F41.9 Anxiety disorder, unspecified; F17.200 Nicotine dependence, unspecified, uncomplicated; X58.XXXA Exposure to other specified factors, initial encounter

== ENCOUNTER 2022-05-08 08:46 | Emergency (ER) | payer OTHER ==
[2022-05-08] VITALS (13 sets, daily range): BP systolic 136–185; BP diastolic 86–109
[~2022-05-08] VITALS: Ht 188 cm; Wt 100.0 kg
[2022-05-08 10:00] LABS: HEMOGLOBIN 15.8 g/dl (14.0-18.0); IMMATURE GRANULOCYTES 0.3 % (0.0-5.0); MEAN CORPUSCULAR HGB 30.2 pG CALC (26.0-32.0); MEAN CORPUSCULAR HGB CONC 35.1 g/dL CAL (32.0-36.0); NEUT# 2.23 thou/uL (1.82-7.42); RED BLOOD COUNT 5.23 mill/uL (4.70-6.10); RED CELL DISTRI WIDTH 12.8 % (11.5-15.5)
[2022-05-08 10:09] LABS: ALBUMIN 3.9 g/dL (3.2-5.0); ALKALINE PHOSPHATASE 89 u/l (38-126); ANION GAP 9 (6-22 (CALC)); BILIRUBIN, TOTAL 0.5 mg/dL (0.0-1.4); BUN 12 mg/dL (9-20); BUN/CREATININE RATIO 16 (12-20 (CALC)); CARBON DIOXIDE 24 mmol/l (22-30); CHLORIDE 108 mmol/l (95-108); CREATININE 0.7 mg/dL (0.7-1.3); GFR FOR AFR.AMER. > 60 ML/MIN (>=60 (CALC)); GFR OTHER RACES > 60 ML/MIN (>=60 (CALC)); POTASSIUM 4.1 mmol/l (3.5-5.1); SGOT/AST 30 u/l (17-59); SODIUM 138 mmol/l (137-146); TOTAL PROTEIN 7.1 g/dL (6.3-8.2)
[2022-05-08 10:21] LABS: MYOGLOBIN 46 ng/mL (0 - 121)
[2022-05-08] MEDS ORDERED: PAXLOVID PO (10:49)
== END 2022-05-08 11:35 | disposition home or self-care (01) ==
LOC: ED 08:46
PROVIDERS: Emergency Medicine
DX: U07.1 COVID-19 (principal); R50.9 Fever, unspecified; R05.9 Cough, unspecified; M79.10 Myalgia, unspecified site; R11.2 Nausea with vomiting, unspecified; R51.9 Headache, unspecified; R19.7 Diarrhea, unspecified; B19.20 Unspecified viral hepatitis C without hepatic coma; F41.9 Anxiety disorder, unspecified; F17.200 Nicotine dependence, unspecified, uncomplicated

== ENCOUNTER 2022-08-03 18:54 | Emergency (ER) | payer OTHER ==
[~2022-08-03] VITALS: Ht 188 cm; Wt 95.0 kg
[~2022-08-03 18:54] MED LIST changes: +PAXLOVID PO
[2022-08-03] MEDS ORDERED: VOLTAREN75 MG PO (20:34)
[2022-08-03 20:45] VITALS: BP 137/90
== END 2022-08-03 20:52 | disposition home or self-care (01) ==
LOC: ED 18:54
DX: S20.212A Contusion of left front wall of thorax, initial encounter (principal); S40.212A Abrasion of left shoulder, initial encounter; B19.20 Unspecified viral hepatitis C without hepatic coma; V18.0XXA Pedal cycle driver injured in noncollision transport accident in nontraffic accident, initial encounter; Y93.55 Activity, bike riding

== ENCOUNTER 2022-08-15 21:47 | Emergency (ER) | payer OTHER ==
[~2022-08-15] VITALS: Ht 188 cm; Wt 102.0 kg
[~2022-08-15 21:47] MED LIST changes: +VOLTAREN75 MG PO
[2022-08-15] MEDS ORDERED: ULTRAM50 M1 PO (22:14)
[2022-08-15] MEDS ORDERED: AMOXICILLIN500 MG PO (22:14)
[2022-08-15 23:20] VITALS: BP 131/88
== END 2022-08-15 23:20 | disposition home or self-care (01) ==
LOC: ED 21:47
DX: K04.7 Periapical abscess without sinus (principal); B19.20 Unspecified viral hepatitis C without hepatic coma; F41.9 Anxiety disorder, unspecified; F17.200 Nicotine dependence, unspecified, uncomplicated

== ENCOUNTER 2022-11-03 12:40 | Emergency (ER) | payer OTHER ==
[2022-11-03] VITALS (8 sets, daily range): BP systolic 92–122; BP diastolic 53–83
[~2022-11-03] VITALS: Ht 188 cm; Wt 90.7 kg
[2022-11-03] MEDS ORDERED: IBUPROFEN600 MG PO (13:21)
[2022-11-03] MEDS ORDERED: PREDNISONE50 MG PO (13:21)
[2022-11-03] MEDS ORDERED: CYCLOBENZAPRINE10 MG PO (13:21)
== END 2022-11-03 14:19 | disposition home or self-care (01) ==
LOC: ED 12:40
DX: M54.42 Lumbago with sciatica, left side (principal); B19.20 Unspecified viral hepatitis C without hepatic coma; F41.9 Anxiety disorder, unspecified; F17.200 Nicotine dependence, unspecified, uncomplicated

== ENCOUNTER 2025-01-16 11:38 | Emergency (ER) | payer OTHER ==
[~2025-01-16] VITALS: Ht 188 cm; Wt 96.8 kg
[~2025-01-16 11:38] MED LIST changes: +CYCLOBENZAPRINE10 MG PO
[2025-01-16] MEDS ORDERED: VISTARIL 50MG C50 M1 PO (12:21)
[2025-01-16] MEDS ORDERED: AMOXICILLIN500 M2 PO (12:21)
[2025-01-16 12:40] VITALS: BP 153/97
== END 2025-01-16 12:55 | disposition home or self-care (01) | DRG 159 ==
LOC: ED 11:38
DX: K04.7 Periapical abscess without sinus (principal); K02.9 Dental caries, unspecified; F41.9 Anxiety disorder, unspecified; B19.20 Unspecified viral hepatitis C without hepatic coma; F17.210 Nicotine dependence, cigarettes, uncomplicated